=== PATIENT | female | born 1985 | race Caucasian/White ===

== ENCOUNTER 2017-01-09 00:56 | Emergency (ER) | payer BC ==
[~2017-01-09] VITALS: Ht 167.6 cm; Wt 78.0 kg
[~2017-01-09 00:56] MED LIST: IRON1CAP PO; PRENTAB26 PO; SENNTAB23 PO
[2017-01-09 01:03] VITALS: TEMP 36.7; Ht 167.6 cm; Wt 78.0 kg
[2017-01-09] MEDS ORDERED: OXYCODONE HCL IR 5 MG TAB (IMMEDIATE RELEASE) PO STA (01:21)
[2017-01-09 03:19] VITALS: BP 111/66; PULSE 65; O2SAT 100
[2017-01-09] MEDS ORDERED: OXYC1TAB3 PO (03:39)
--- NOTE | 2017-01-09 04:45 | EMERGENCY ROOM VISIT NOTE ---
ED Visit Note First contact with patient: 01:13 CHIEF COMPLAINT: Ankle pain HISTORY OF PRESENT ILLNESS: This 31-year-old female patient presents to the emergency department after sustaining an injury to the right ankle and foot with a twisting, inversion motion after falling down 3 steps at home. The patient complains of pain along the outside of the ankle. The patient is without pain of the foot. The patient rates the pain as dull and 8/10. The patient is not comfortably able to bear weight on the foot. Constant pain, worse with movement, weight bearing, and the dependent position. No knee pain, the patient is able to move their toes. No numbness or weakness of the foot, no laceration. The patient has not had a previous fracture to this ankle. The patient has taken nothing for the pain. The patient denies any other injury. REVIEW OF SYSTEMS: A 6 system review of systems was completed with positives and pertinent negatives listed in the HPI. ALLERGIES: Sulfa MEDICATIONS: No chronic medications PMH: Otherwise healthy SOCIAL HISTORY: Lives at home with family PHYSICAL EXAM: Vital Signs: Reviewed Nurse's notes, vital signs stable. GENERAL : White female, no acute distress, but appears in pain, well-developed, well- nourished. MENTAL STATUS: Alert, oriented to person place and time, and cooperative. MUSCULOSKELETAL: The right ankle is swollen and tender over the lateral malleolus, but the skin is intact and there is no ligamentous instability. There is no fifth metatarsal tenderness. There is no tenderness over the rest of the foot. There is no calf or tibia/fibular tenderness. There is no visual deformity. The foot and toes are warm and well-perfused. Dorsalis pedis pulse 2+. Sensation to pain and light touch is intact. Capillary refill less than 2 seconds. EMERGENCY DEPARTMENT COURSE: Physical exam and history were performed. Nursing notes and EMR were reviewed. The patient appears to have injured her right ankle after falling down several stairs this evening. The patient was given a dose of oxycodone here in the emergency department. Ice packs were applied and x-rays were performed. X-rays do not appear to show an obvious fracture. The patient will be placed in a gel ankle splint and given crutches. Her vascular she remained intact after this. She will need to follow with orthopedics for further care and management. She was asked to contact them on Tuesday and arrange appropriate appointment. She was otherwise invited back to the ER with any new, worsening, or concerning symptoms. Problem List Medical Problems: (1) Intrauterine Status: Resolved (2) Vaginal delivery Status: Resolved Current/Historical Medications Scheduled Multivit/Min/Iron/Fol Ac/Pren ( Vitamin), 1 TAB PO DAILY Oxycodone Immediate Rel Tab (Roxicodone Ir), 5 MG PO Q6H Allergies Coded Allergies: Sulfa Antibiotics (Verified Allergy, Unknown, "SULFA DRUGS", 01/09/17) Vital Signs Date Time Temp Pulse Resp B/P (MAP) Pulse Ox O2 Delivery O2 Flow Rate FiO2 01/09/17 03:19 65 18 111/66 100 Room Air 01/09/17 01:03 36.7 70 18 110/68 100 Room Air Medications Administered Medications (Trade) Dose Ordered Sig/Yoly Route Start Time Stop Time Status Last Admin Dose Admin Oxycodone HCl (Roxicodone Immediate Rel Tab) 5 mg NOW STAT PO 01/09/17 01:21 01/09/17 01:23 DC 01/09/17 01:30 5 MG Departure Information Impression Primary Impression: Right ankle injury Dispostion Home / Self-Care Condition GOOD Prescriptions Oxycodone Immediate Rel Tab (ROXICODONE IR) 5 Mg Tab 5 MG PO Q6H for Pain, #12 TAB For initial treatment Prov: Robert Erazo PA-C 01/09/17 Referrals Shoaib Valadez M.D. Forms HOME CARE DOCUMENTATION FORM, IMPORTANT VISIT INFORMATION Patient Instructions My [facility] Additional Instructions You were seen and evaluated today on an emergency basis only. This is not a substitute for, or an effort to provide, complete comprehensive medical care. It is not possible to recognize and treat all injuries or illnesses in a single emergency department visit. For this reason it is recommended that you followup with orthopedics, Dr. Valadez's office, for ongoing care and evaluation. Call the office Tuesday morning to arrange her appointment. For baseline pain relief you may alternate ibuprofen and acetaminophen every 4 hours for pain control. Take 600 mg ibuprofen (Advil) and then 4 hours later take 1000 mg acetaminophen (Tylenol). Do not take more than 3000 mg acetaminophen in a single day. Oxycodone (OxyIR) 5mg: Take ONE pill every SIX hours for breakthrough pain. Avoid alcohol, operating machinery or dangerous equipment, working on ladders or roofs, DRIVING, or situations where being under the influence may be dangerous. It is recommended to use an [id number] stool softener such as Colace, 100mg twice daily while taking this medication to avoid constipation. Wear your ankle splint and use your crutches until otherwise instructed by orthopedics. You are welcome to return to the emergency department anytime with new, worsening, or concerning symptoms.
--- NOTE | 2017-01-09 07:33 | DIAGNOSTIC IMAGING REPORT ---
RIGHT ANKLE 3 VIEWS CLINICAL HISTORY: Right ankle injury. FINDINGS: 3 views of the right ankle are obtained. No prior studies are available for comparison at the time of dictation. The skeletal structures are well mineralized. No fracture is seen. The ankle mortise is intact. There is no significant joint effusion. Mild soft tissue swelling is present around ankle. IMPRESSION: Mild soft tissue swelling with no radiographic evidence of right ankle fracture. Electronically signed by: Chinedu Ferguson M.D. 01/09/2017 7:32 AM Dictated Date/Time: 01/09/2017 7:31 AM
== END 2017-01-09 03:47 | disposition home or self-care (01) ==
LOC: C.EDB 00:57 → C.EDA 03:47
DX: S99.911A Unspecified injury of right ankle, initial encounter (principal); W10.9XXA Fall (on) (from) unspecified stairs and steps, initial encounter